=== PATIENT | female | born 2005 ===

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

== ENCOUNTER 2024-05-16 22:39 | Emergency (ER) | payer MEDICAID, SELFPAY ==
[2024-05-16 22:48] VITALS: BP 112/70
--- NOTE | 2024-05-17 00:19 | ED.GENMED ---
History of Present Illness
General
Chief Complaint: Cough
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
Exam Limitations: none
Time Seen by Provider: 05/16/24 23:52
History of Present Illness
History of Present Illness:
19-year-old female cough congestion for 5 to 6 days. Child with similar symptoms for 10 days. 38+ temperature earlier. Did take Tylenol. No pleuritic pain no hemoptysis no shortness of breath no vomiting no other complaints. Denies .
Review of Systems
Review of Systems
All Other Systems: Not applicable
Constitutional: Reports fever
ABD/GI: Reports no symptoms
: Reports no symptoms
Phy Exam
Physical Exam
Physical Exam:
GENERAL: Alert and oriented in no apparent distress
EYE: Orbits normal.
NECK: Supple
CARDIAC: Regular rate and rhythm without any obvious murmurs.
LUNGS: A few rhonchi however no respiratory distress. Occasional dry cough
ABDOMEN: Soft, without focal tenderness or distention
NEUROLOGICAL: Alert and oriented , grossly non-focal
SKIN: Warm and dry, no rash or lesion, no discoloration, skin intact.
MUSCULOSKELETAL: No edema,no deformity.Good color
PSYCH: Normal and appropriate interaction.
Course
Orders/Labs/Results
Orders:
Orders
05/17/24 01:15
CXR2 [CR Chest - 2 Views ] Urgent
Comment:
Reason For Exam: cough fever
05/17/24 01:50
Azithromycin [Zithromax] 500 mg PO NOW STA
Cefdinir [Omnicef] 300 mg PO NOW STA
Vital Signs
Initial and Last Documented VS:
Initial Vital Signs
Temp Pulse Resp BP Pulse Ox
98.5 F 96 20 112/70 98
05/16/24 22:48 05/16/24 22:48 05/16/24 22:48 05/16/24 22:48 05/16/24 22:48
Last Documented Vital Signs
Temp Pulse Resp BP Pulse Ox
98.5 F 96 20 112/70 98
05/16/24 22:48 05/16/24 22:48 05/16/24 22:48 05/16/24 22:48 05/16/24 22:48
*Radiology
Radiology exam reviewed: preliminary read by ED provider (Multifocal pneumonia)
*Pulse Oximetry
Patient hypoxic: no (98%)
*Critical Care Note
Total Time (30-74mins, 75-104mins- exclusive of procedures): Not Applicable
Update Note
Update Note:
Patient is very nontoxic healthy and in no distress. Not the hydrated no rest distress. Child with similar symptoms. Likely viral however requires coverage for typical and atypical. No indication for admission
ED Attending Note
-
Portions of this chart may have been created with voice recognition software.� Occasional wrong word or��sound alike� substitutions may have occurred due to the inherent limitations of voice recognition software.
Discharge Plan
Departure
Patient Disposition: Home (Routine Discharge)
Date of Disposition: 05/17/24
Time of Disposition: 01:51
Patient with high blood pressure during this ER visit?: No
Discharge Problem:
Multifocal pneumonia
Instructions: Pneumonia, Adult (DC)
Prescriptions:
New
cefdinir 300 mg capsule
300 mg PO BID 10 Days Qty: 20 0RF
azithromycin [Zithromax] 250 mg tablet
250 mg PO DAILY Qty: 6 0RF
No Action
acetaminophen 325 mg Tablet
650 mg PO Q4HPRN PRN (Reason: mild pain) Qty: 0 0RF
ibuprofen 600 mg Tablet
600 mg PO Q6HPRN PRN (Reason: moderate pain/cramps) Qty: 0 0RF
Referrals:
UNKNOWN - PT DOES,NOT KNOW [Family Provider] -
Activity Restrictions/Additional Instructions:
You should have a follow-up chest x-ray in a few weeks.
If you do not start noticing improvement in a few days please return for reevaluation.
Interventions
Interventions:
*General Assessment Last Done: 05/17/24 00:28
*Neglect/Abuse Screening Last Done: 05/17/24 00:28
*ED COVID-19 Vaccine History Last Done: 05/17/24 00:28
ED- Pulmonary Assessment Last Done: 05/17/24 00:28
Discharge Date and Time
Print Language: Nigerian
[2024-05-17] MEDS: OMNICEF 300 MG PO (02:31)
[2024-05-17] MEDS: ZITHROMAX 500 MG PO (02:32)
== END 2024-05-17 02:50 | disposition home or self-care (01) ==
LOC: EMR 22:39
PROVIDERS: EMERGENCY PHYSICIAN Emergency Medicine
DX: J18.9 Pneumonia, unspecified organism (principal)
CPT/HCPCS: 99283; 71046